=== PATIENT | female | born 1955 | race Caucasian/White ===

== ENCOUNTER → 2016-08-10 19:56 | Outpatient (CLI) | payer BC ==
[2014-11-06 10:20] VITALS: BMI 24.3
[~2016-08-10 19:56] MED LIST: CARAFATE1 G PO; MOBIC7.5 MG PO; NEURONTIN 300300 MG; NEXIUM20 MG PO; PEPCID40 MG PO; PROBIOTIC1 EAC1 PO; REQUIP0.5 MG PO; RESTORIL15 MG PO; TOPROL XL100 MG PO
== END | disposition home or self-care (01) ==
LOC: D.SLEEP 19:56
DX: G47.33 Obstructive sleep apnea (adult) (pediatric) (principal)

== ENCOUNTER 2017-02-09 11:28 | Day surgery (SDC) | payer BC ==
[~2017-02-09] VITALS: Ht 170.2 cm; Wt 70.5 kg
[2017-02-09 11:34] VITALS: BP 128/65; Ht 170.2 cm; Wt 70.5 kg
[2017-02-09 11:46] LABS: BASOPHILS 0.8 % (0-2); EOSINOPHILS 1.7 % (0-7); HEMATOCRIT 39.9 % (36.0-48.0); HEMOGLOBIN 13.4 g/dL (12-16); LYMPHOCYTES 54.6 % (15-50); MCH 32.5 pg (26.0-34.0); MCHC 33.6 g/dL (31.0-37.0); MCV 96.8 fL (80.0-100.0); MEAN PLATELET VOLUME 10.8 fL (7.4-10.4); MONOCYTES 6.5 % (2-11); NEUTROPHILS 36.4 % (40-80); PLATELET COUNT 225 10x3/uL (130-400); RBC 4.12 10x6/uL (4.00-5.40); RDW 12.1 % (11.5-14.5); WBC 7.3 10x3/uL (4.8-10.8)
[2017-02-09 11:47] LABS: ANION GAP 13.6 mmol/L (8-16); CALCIUM 9.1 mg/dL (8.5-10.1); CARBON DIOXIDE 26.5 mmol/L (21.0-32.0); CREATININE - SERUM 0.9 mg/dL (0.6-1.3); POTASSIUM - SERUM 4.1 mmol/L (3.5-5.1)
== END 2017-02-09 13:20 | disposition home or self-care (01) ==
LOC: D.OPS 11:28
PROVIDERS: Anesthesiology
DX: R13.10 Dysphagia, unspecified (principal); K29.50 Unspecified chronic gastritis without bleeding; Z01.812 Encounter for preprocedural laboratory examination

== ENCOUNTER 2018-01-11 10:22 | Day surgery (SDC) | payer BC ==
[~2018-01-11] VITALS: Ht 170.2 cm; Wt 70.9 kg
--- NOTE | ~2018-01-11 | OP ---
PATIENT NAME: TOMAS MORRIS MEDICAL RECORD: [id number] :51 [facility] AD[facility] DATE: SURGEON: WARD MARTINES DO DATE OF OPERATION: 01/11/2018 PROCEDURE: EGD with biopsies. INDICATIONS FOR PROCEDURE: Heartburn, nausea, altered bowel function. SCOPE: Olympus video gastroscope. MEDICATIONS: Propofol 180 mg IV per anesthesia. ESTIMATED BLOOD LOSS: Minimal. COMPLICATIONS: None. FINDINGS: Informed consent was given. The patient was made comfortable with the above medication. After reaching an adequate level of sedation by slow IV push, the patient was placed on her left side. The endoscope was advanced under direct visualization through the mouth to the second portion of the duodenum. The upper, middle, and lower thirds of the esophagus appeared normal. 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 Cold forceps, biopsies were taken of the site to send for histology. The endoscope was advanced beyond the GE junction into the stomach and retroflexed to view the cardia, where a very small sliding hiatal hernia was present. The fundus and body of the stomach appeared normal. In the distal body of the stomach, there were a few benign-appearing polyps, likely related to PPI use. A biopsy was taken of 1 to confirm this diagnosis. In the antrum and prepyloric region, there were a few erythematous sites and granulocytes consistent with possible gastritis. Random biopsies were taken with cold forceps to submit for histopathology. The endoscope was advanced beyond the pylorus into the duodenum where the bulb, first portion, and second portion of the duodenum appeared normal. Cold forceps biopsies were taken due to her loose stools and change in bowel habits, but endoscopic appearances were normal in this area. The endoscope was then withdrawn from the patient. The patient tolerated the procedure well and there were no complications. IMPRESSION: 1. 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 Biopsies pending. 2. Small sliding hiatal hernia. 3. A few benign-appearing fundic gland type gastric polyps, likely related to PPI use. Biopsies pending. 4. Gastritis characterized by some erythema and granularity. Biopsies pending. 5. Normal appearing small bowel. Biopsies pending. PLAN AND RECOMMENDATIONS: 1. Discharge home when recovery parameters are met. 2. Follow up biopsy specimen results. 3. Continue current medications, but change use of Nexium to 40 mg once daily rather than b.i.d. 4. GERD diet and reflux precautions. 5. Repeat EGD as needed. 6. Continue hyoscyamine as needed for esophageal spasms. OPERATIVE REPORT [id number] MORRISTOMAS TRANSINT:[id number] Voice Confirmation ID: [id number] DOCUMENT ID: [id number] WARD MARTINES DO at 1212 CC: [id number] DICTATION DATE: 01/11/18 1205 RIG HAND: 01/11/18 1417 [facility] 01/11/18 [facility] [address] [place] [address]
[2018-01-11] MEDS ORDERED: ATIVAN0.5 MG PO (10:30)
[2018-01-11] MEDS ORDERED: CELEXA10 MG PO (10:31)
[2018-01-11] MEDS ORDERED: REQUIP3 MG (10:32)
[2018-01-11] MEDS ORDERED: CALCIUM 500 + D1 TAB PO (10:33)
[2018-01-11] MEDS ORDERED: CETIRIZINE HCL5 MG (10:33)
[2018-01-11 10:38] VITALS: BP 120/67; Ht 170.2 cm; Wt 70.9 kg
[2018-01-11 11:12] LABS: HEMOGLOBIN 13.6 g/dL (12-16); MCH 32.6 pg (26.0-34.0); MCV 95.9 fL (80.0-100.0); MEAN PLATELET VOLUME 10.4 fL (7.4-10.4); PLATELET COUNT 245 10x3/uL (130-400); RBC 4.17 10x6/uL (4.00-5.40); RDW 12.3 % (11.5-14.5); WBC 7.9 10x3/uL (4.8-10.8)
[2018-01-11 11:37] LABS: CALC OSMOLALITY 278 mosm/kg (275-300); CALCIUM 9.1 mg/dL (8.5-10.1); CARBON DIOXIDE 24.8 mmol/L (21.0-32.0); CHLORIDE - SERUM 105 mmol/L (98-107); CREATININE - SERUM 0.6 mg/dL (0.6-1.3); GLUCOSE 87 mg/dL (74-106); POTASSIUM - SERUM 4.8 mmol/L (3.5-5.1); SODIUM 141 mmol/L (136-145); UREA NITROGEN 11 mg/dL (7-18); eGFR NON AFRICAN AMERICAN > 90 mL/min (90-120)
[2018-01-11 11:50] LABS: EOSINOPHILS 1 % (0-7); LYMPHOCYTES 56 % (15-50); MONOCYTES 3 % (2-11); NEUTROPHILS 38 % (40-80)
[2018-01-11 11:51] LABS: PLATELET ESTIMATE NORMAL
== END 2018-01-11 12:55 | disposition home or self-care (01) ==
LOC: D.OPS 10:22
PROVIDERS: Anesthesiology
DX: K21.0 Gastro-esophageal reflux disease with esophagitis (principal); K44.9 Diaphragmatic hernia without obstruction or gangrene; K31.7 Polyp of stomach and duodenum; K29.50 Unspecified chronic gastritis without bleeding; Z01.812 Encounter for preprocedural laboratory examination

== ENCOUNTER 2018-08-23 07:12 | Day surgery (SDC) | payer BC ==
[~2018-08-23] VITALS: Ht 170.2 cm; Wt 72.7 kg
[~2018-08-23 07:12] MED LIST changes: +ATIVAN0.5 MG PO; +CALCIUM 500 + D1 TAB PO; +CELEXA10 MG PO; +CETIRIZINE HCL5 MG; +REQUIP3 MG
[2018-08-23 08:47] VITALS: BP 128/78; Ht 170.2 cm; Wt 72.7 kg
[2018-08-23 09:40] LABS: BASOPHILS 0.3 % (0-2); EOSINOPHILS 0.9 % (0-7); HEMATOCRIT 42.4 % (36.0-48.0); HEMOGLOBIN 14.3 g/dL (12-16); IMMATURE GRANULOCYTES 0.1 % (0-5); LYMPHOCYTES 44.9 % (15-50); MCH 33.1 pg (26.0-34.0); MCHC 33.7 g/dL (31.0-37.0); MCV 98.1 fL (80.0-100.0); MEAN PLATELET VOLUME 10.2 fL (7.4-10.4); MONOCYTES 6.8 % (2-11); PLATELET COUNT 231 10x3/uL (130-400); RBC 4.32 10x6/uL (4.00-5.40); RDW 12.3 % (11.5-14.5); WBC 6.7 10x3/uL (4.8-10.8)
[2018-08-23 09:43] LABS: ALBUMIN 3.5 g/dL (3.4-5.0); ALKALINE PHOSPHATASE 89 U/L (46-116); ALT (SGPT) 16 U/L (10-68); BILIRUBIN - TOTAL 0.67 mg/dL (0.2-1.3); CALC OSMOLALITY 279 mosm/kg (275-300); CALCIUM 9.5 mg/dL (8.5-10.1); CARBON DIOXIDE 29.9 mmol/L (21.0-32.0); CHLORIDE - SERUM 103 mmol/L (98-107); CREATININE - SERUM 0.8 mg/dL (0.6-1.3); GLUCOSE 110 mg/dL (74-106); POTASSIUM - SERUM 4.7 mmol/L (3.5-5.1); PROTEIN - SERUM 7.6 g/dL (6.4-8.2); SODIUM 140 mmol/L (136-145); UREA NITROGEN 12 mg/dL (7-18); eGFR NON AFRICAN AMERICAN 76 mL/min (90-120)
--- NOTE | 2018-08-23 10:43 | OP ---
PATIENT NAME: TOMAS MORRIS MEDICAL RECORD: [id number] :51 LOCATION:[facility] ADMISSION DATE: SURGEON: WARD MARTINES DO DATE OF OPERATION: 08/23/2018 PROCEDURE: Colonoscopy with polypectomy. INDICATIONS FOR PROCEDURE: Screening for colorectal cancer and a personal history of colon polyps. The patient reports her last colonoscopy was approximately 3 years ago. SCOPE: Olympus video pediatric colonoscope. MEDICATIONS: Propofol 450 mg IV per anesthesia. WITHDRAWAL TIME: 16 minutes. ESTIMATED BLOOD LOSS: Minimal. COMPLICATIONS: None. FINDINGS AND DESCRIPTION OF PROCEDURE: Informed consent was given. The patient was made comfortable with the above medication. After reaching an adequate level of sedation by slow IV push, the patient was placed on her left side. A digital rectal examination was performed and was normal. The endoscope was then advanced under direct visualization through the rectum to the cecum, confirmed by the presence of the appendiceal orifice and ileocecal valve. The endoscope was slowly withdrawn and mucosa was carefully examined. The prep quality was good. There were 3 polyps visualized in the cecum. They were benign-appearing and sessile and ranged in size from 2-4 mm in diameter. They were all removed using hot forceps. In the ascending colon, there were two separate polyps, which were benign-appearing and sessile. They ranged in size from 2-4 mm in diameter. They were both removed using hot forceps. In the rectum, a single benign-appearing sessile polyp, which measured approximately 4 mm in diameter was removed using hot forceps. Retroflexion was performed in the rectum with visualization of grade I internal hemorrhoids without active bleeding. The endoscope was withdrawn from the patient. The patient tolerated the procedure well and there were no complications. IMPRESSION: 1. Six polyps as described above, removed using hot forceps. 2. Grade I internal hemorrhoids without bleeding. 3. Otherwise, normal colonoscopy. PLAN AND RECOMMENDATIONS: 1. Discharge home when recovery parameters are met. 2. Follow up biopsy specimen results. 3. High fiber diet. 4. Continue current medications. 5. Recall colonoscopy in 3 years for surveillance based on a personal history of polyps. TRANSINT:[id number] Voice Confirmation ID: [id number] DOCUMENT ID: [id number] OPERATIVE REPORT [id number] TOMAS MORRIS WARD MARTINSE DO at 1043 CC: [id number] DICTATION DATE: 08/23/18 1012 [employer] COORDINATOR: 08/23/18 1031 [facility] [address] [place] [id number]
--- NOTE | 2018-08-23 10:48 | NUR ---
IV D/C'D CATH INTACT.
--- NOTE | 2018-08-23 11:00 | NUR ---
D/C INSTRUCTIONS EXPLAINED TO PT. VOICED UNDERSTANDING. COPIES OF ALL GIVEN. D/C'D HOME VIA W/C TO PRIVATE CAR.
== END 2018-08-23 11:21 | disposition home or self-care (01) ==
LOC: D.OPS 07:12
PROVIDERS: Anesthesiology
DX: K63.5 Polyp of colon (principal)

== ENCOUNTER → 2019-08-16 09:03 | Outpatient (CLI) | payer OTHER ==
[2018-08-23 08:47] VITALS: BMI 25.1
== END | disposition home or self-care (01) ==
LOC: D.US 09:00
PROVIDERS: ATTEND Family Medicine
DX: R10.9 Unspecified abdominal pain (principal)

== ENCOUNTER → 2020-04-17 09:32 | Outpatient (CLI) | payer OTHER ==
[2018-08-23 08:47] VITALS: BMI 25.1
== END | disposition home or self-care (01) ==
LOC: D.LAB 09:32
PROVIDERS: ATTEND Internal Medicine Pulmonary Disease
DX: Z11.59 Encounter for screening for other viral diseases (principal)

== ENCOUNTER → 2020-04-18 10:52 | Outpatient (CLI) | payer OTHER ==
[2018-08-23 08:47] VITALS: BMI 25.1
== END | disposition home or self-care (01) ==
LOC: D.NM 10:52
PROVIDERS: ATTEND Internal Medicine Gastroenterology
DX: R11.0 Nausea (principal); R10.13 Epigastric pain; R68.81 Early satiety

== ENCOUNTER → 2020-04-20 11:06 | Outpatient (CLI) | payer OTHER ==
[2018-08-23 08:47] VITALS: BMI 25.1
[2020-04-20 12:06] LABS: BASOPHILS 0.3 % (0-2); EOSINOPHILS 0.7 % (0-7); HEMATOCRIT 40.1 % (36.0-48.0); HEMOGLOBIN 13.5 g/dL (12-16); IMMATURE GRANULOCYTES 0.1 % (0-5); LYMPHOCYTES 38.4 % (15-50); MCH 33.9 pg (26.0-34.0); MCHC 33.7 g/dL (31.0-37.0); MCV 100.8 fL (80.0-100.0); MEAN PLATELET VOLUME 10.1 fL (7.4-10.4); MONOCYTES 6.8 % (2-11); NEUTROPHILS 53.7 % (40-80); PLATELET COUNT 253 10x3/uL (130-400); RBC 3.98 10x6/uL (4.00-5.40); RDW 12.2 % (11.5-14.5); WBC 7.1 10x3/uL (4.8-10.8)
== END | disposition home or self-care (01) ==
LOC: D.LAB 04-11 09:30 → D.RT 04-11 11:00 → D.RAD 04-11 11:45 → D.LAB 04-17 15:45 → D.RT 08:00
PROVIDERS: ATTEND Internal Medicine Pulmonary Disease
DX: J44.9 Chronic obstructive pulmonary disease, unspecified (principal); J30.9 Allergic rhinitis, unspecified

== ENCOUNTER → 2020-05-07 11:52 | Outpatient (CLI) | payer OTHER ==
[2018-08-23 08:47] VITALS: BMI 25.1
== END | disposition home or self-care (01) ==
LOC: D.LAB 11:52
PROVIDERS: ATTEND Internal Medicine Pulmonary Disease
DX: Z11.59 Encounter for screening for other viral diseases (principal)

== ENCOUNTER → 2020-05-10 07:30 | Outpatient (CLI) | payer OTHER ==
[2018-08-23 08:47] VITALS: BMI 25.1
== END | disposition home or self-care (01) ==
LOC: D.RT 07:30
PROVIDERS: ATTEND Internal Medicine Pulmonary Disease
DX: J44.9 Chronic obstructive pulmonary disease, unspecified (principal); Z11.59 Encounter for screening for other viral diseases

== ENCOUNTER → 2020-12-14 08:47 | Outpatient (CLI) | payer OTHER ==
[2018-08-23 08:47] VITALS: BMI 25.1
== END | disposition home or self-care (01) ==
LOC: D.US 12-11 10:30
PROVIDERS: ATTEND Family Medicine
DX: R92.8 Other abnormal and inconclusive findings on diagnostic imaging of breast (principal)